=== PATIENT | male | born 1985 | race Two or more races ===

== ENCOUNTER 2019-05-19 13:46 | Emergency (ER) | payer MEDICARE, MEDICAID ==
--- NOTE | 2019-05-19 14:43 | EDM.PDOC ---
ED HPI GENERAL MEDICAL PROBLEM - General Chief Complaint: Chest Pain Stated Complaint: [facility] Time Seen by Provider: 05/19/19 14:25 Source of Information: Reports: Patient, EMS, Old Records, RN History Limitations: Reports: No Limitations - History of Present Illness INITIAL COMMENTS - FREE TEXT/NARRATIVE: 33 yo male 1/2 ppd smoker who resides at a jail in [place] arrives via EMS for L sided chest pain that began at rest and has gradually resolved to the point of being nearly gone now without tx. He has had this before and it went away on its own. He says his chest wall was tender at the time it was at its worst. No injury to this area. He didn't want to come to the ER, but staff at the jail called EMS. Staff at the jail allegedly think he wants to escape the jail to get to his girlfriend in [place]. Upon arrival in the ER he eloped and had to be returned to the ER. Onset: Today Onset Date: 05/19/19 Duration: Minutes:, Improving Location: Reports: Chest Quality: Reports: Pressure Severity: Mild (now, was worse earlier) Improves with: Reports: Other (time) Worsens with: Reports: Other (uncertain) Context: Reports: Other (see HPI) Associated Symptoms: Reports: No Other Symptoms Treatments RIGGER THIRD: Reports: Other (see below) (none) Anterior Chest Pain Score (Numeric/FACES): 4 - Related Data Allergies Allergy/AdvReac Type Severity Reaction Status Date / Time banana Allergy Cannot Verified 05/19/19 14:25 Remember quetiapine [From Seroquel] Allergy Cannot Verified 05/19/19 14:16 Remember Home Meds: Home Meds Divalproex Sodium [Depakote ER] 500 mg PO TID 05/19/19 [History] Fenofibrate 160 mg PO DAILY 05/19/19 [History] Sertraline HCl 100 mg PO DAILY 05/19/19 [History] atorvaSTATin Calcium [Atorvastatin Calcium] 20 mg PO BEDTIME 05/19/19 [History] risperiDONE [RisperiDAL] 2 mg PO BID 05/19/19 [History] traZODone HCl [Trazodone HCl] 100 mg PO DAILY 05/19/19 [History] Past Medical History Cardiovascular History: Reports: High Cholesterol Neurological History: Reports: Head Trauma, Other (See Below) Other Neuro History: TBI Psychiatric History: Reports: ADD Endocrine/Metabolic History: Reports: Obesity/BMI 30+ ED ROS GENERAL - Review of Systems Review Of Systems: See Below Constitutional: Reports: No Symptoms HEENT: Reports: No Symptoms Respiratory: Reports: No Symptoms Cardiovascular: Reports: Chest Pain (now nearly gone) Endocrine: Reports: No Symptoms GI/Abdominal: Reports: No Symptoms : Reports: No Symptoms Musculoskeletal: Reports: No Symptoms Skin: Reports: No Symptoms Neurological: Reports: No Symptoms Psychiatric: Reports: No Symptoms ED EXAM, GENERAL - Physical Exam Exam: See Below Exam Limited By: No Limitations General Appearance: Alert, WD/WN, No Apparent Distress, Obese Eye Exam: Bilateral Eye: Normal Inspection Ears: Normal External Exam, Normal Canal, Hearing Grossly Normal, Normal TMs Ear Exam: Right Ear: TM Perforation, Bilateral Ear: Auricle Normal, Canal Normal , TM normal Nose: Normal Inspection, No Blood Throat/Mouth: Normal Inspection, Normal Lips, Normal Oropharynx, Normal Voice, No Airway Compromise Head: Atraumatic, Normocephalic Neck: Normal Inspection Respiratory/Chest: No Respiratory Distress, Lungs Clear, Normal Breath Sounds, No Accessory Muscle Use Cardiovascular: Regular Rate, Rhythm, No Edema GI/Abdominal: Normal Bowel Sounds, Soft, Non-Tender, No Distention Back Exam: Normal Inspection. No: CVA Tenderness (R), CVA Tenderness (L) Extremities: Normal Inspection, Normal Range of Motion, Non-Tender, No Pedal Edema Neurological: Alert, Oriented, CN II-XII Intact, Normal Cognition, No Motor/ Sensory Deficits Psychiatric: Normal Affect, Normal Mood Skin Exam: Warm, Dry, Intact, Normal Color, No Rash EKG INTERPRETATION EKG Date: 05/19/19 Time: 12:40 Rhythm: NSR Rate (Beats/Min): 96 [place]: Normal P-Wave: Present QRS: Normal ST-T: Normal QT: Normal Comparison: NA - No Prior EKG Course - Vital Signs Last Recorded V/S: Last Vital Signs Temp 36.4 C 05/19/19 14:14 Pulse 95 05/19/19 14:14 Resp 25 H 05/19/19 14:14 BP 105/58 L 05/19/19 14:14 Pulse Ox 94 L 05/19/19 14:14 - Orders/Labs/Meds Labs: Laboratory Tests 05/19/19 Range/Units 14:25 Troponin I < 0.017 (0.000-0.056) ng/mL Departure - Departure Time of Disposition: 14:59 Disposition: Home, Self-Care 01 Condition: Good Clinical Impression: Tobacco abuse, Atypical chest pain Obesity Qualifiers: Obesity type: due to excess calories Obesity classification: unspecified obesity classification Serious obesity comorbidity presence: unspecified whether serious comorbidity present Qualified Code(s): E66.09 - Other obesity due to excess calories Referrals: PCP,None [Primary Care Provider] - Forms: ED Department Discharge Additional Instructions: No smoking. F/U with your provider as needed.
== END 2019-05-19 15:35 | disposition home or self-care (01) ==
LOC: JP.ED 13:46
DX: R07.89 Other chest pain (principal); E78.00 Pure hypercholesterolemia, unspecified; F98.8 Other specified behavioral and emotional disorders with onset usually occurring in childhood and adolescence; E66.09 Other obesity due to excess calories; F17.200 Nicotine dependence, unspecified, uncomplicated; Z68.41 Body mass index [BMI] 40.0-44.9, adult; Z91.018 Allergy to other foods; Z88.8 Allergy status to other drugs, medicaments and biological substances; Z79.899 Other long term (current) drug therapy
CPT/HCPCS: 36415; 84484; 99283; 99285-25